=== PATIENT | female | born 1955 | race Caucasian/White ===

== ENCOUNTER 2022-11-01 18:03 | Emergency (ER) | payer MEDICARE ==
[~2022-11-01] VITALS: Ht 160 cm; Wt 72.7 kg
[2022-11-01 18:06] VITALS: TEMP 98.2
[2022-11-01] MEDS ORDERED: METF-1211 PO (18:08)
[2022-11-01] MEDS ORDERED: LINA5TAB PO (18:08)
[2022-11-01 18:21] VITALS: BP 166/91; PULSE 84; RESP 16
[2022-11-01] MEDS ORDERED: ACETAMINOPHEN 500 MG TABLET PO ONE (18:30)
[2022-11-01] MEDS ORDERED: IBUP-1492 PO (20:14)
== END 2022-11-01 20:21 | disposition home or self-care (01) ==
LOC: EMS 18:03
DX: S09.90XA Unspecified injury of head, initial encounter (principal); E11.9 Type 2 diabetes mellitus without complications; Z88.0 Allergy status to penicillin; Z90.49 Acquired absence of other specified parts of digestive tract; W01.0XXA Fall on same level from slipping, tripping and stumbling without subsequent striking against object, initial encounter; Y93.89 Activity, other specified; Y92.89 Other specified places as the place of occurrence of the external cause; Y99.8 Other external cause status
CPT/HCPCS: 70450; 82962; 99284